=== PATIENT | male | born 1980 | race Hispanic/Latino ===

== ENCOUNTER 2018-12-03 16:26 | Emergency (ER) | payer SELFPAY ==
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
== END 2018-12-03 17:34 | disposition home or self-care (01) ==
LOC: ERS 16:26
DX: S40.012A Contusion of left shoulder, initial encounter (principal); V29.9XXA Motorcycle rider (driver) (passenger) injured in unspecified traffic accident, initial encounter